=== PATIENT | male | born 1970 | race Native Hawaiian/Other Pacific Islander ===

== ENCOUNTER 2020-07-06 06:14 | Outpatient (CLI) | payer OTHER | END 2020-07-06 20:08 | disposition home or self-care (01) | LOC: LABW 06:14 | PROVIDERS: ATTEND Nurse Practitioner Family | DX: R80.9 Proteinuria, unspecified (principal) | CPT/HCPCS: 84156 ==

== ENCOUNTER 2020-07-22 10:44 | Outpatient (CLI) | payer OTHER | END 2020-07-22 22:06 | disposition home or self-care (01) | LOC: US 10:44 | PROVIDERS: ATTEND Nurse Practitioner Primary Care | DX: R80.8 Other proteinuria (principal) ==

== ENCOUNTER 2020-08-09 10:07 | Outpatient (CLI) | payer OTHER | END 2020-08-09 18:54 | disposition home or self-care (01) | LOC: RAD 10:07 | PROVIDERS: ATTEND Nurse Practitioner Primary Care | DX: M25.511 Pain in right shoulder (principal) ==

== ENCOUNTER 2020-10-01 15:44 | Outpatient (CLI) | payer OTHER ==
[2020-10-01 17:06] LABS: POTASSIUM 4.1 mmol/L (3.6-5.2)
== END 2020-10-01 19:00 | disposition home or self-care (01) ==
LOC: LABW 15:44
PROVIDERS: ATTEND Student in an Organized Health Care Education/Training Program
DX: I10 Essential (primary) hypertension (principal); R80.9 Proteinuria, unspecified; E87.2 Acidosis
CPT/HCPCS: 36415; 80053; 80074; 81000; 82570; 84155; 84165; 86160; 86592; 86701; 86702; 87389

== ENCOUNTER 2020-12-29 16:50 | Outpatient (CLI) | payer OTHER | END 2020-12-29 19:28 | disposition home or self-care (01) | LOC: LABW 16:50 | PROVIDERS: ATTEND Student in an Organized Health Care Education/Training Program | DX: I12.9 Hypertensive chronic kidney disease with stage 1 through stage 4 chronic kidney disease, or unspecified chronic kidney disease (principal); R80.9 Proteinuria, unspecified; E87.2 Acidosis; N18.2 Chronic kidney disease, stage 2 (mild) | CPT/HCPCS: 36415; 80053; 81000; 82570; 84155; 85014; 85018 ==

== ENCOUNTER 2021-06-13 07:43 | Outpatient (CLI) | payer OTHER | END 2021-06-13 20:32 | disposition home or self-care (01) | LOC: RAD 07:43 | PROVIDERS: ATTEND Nurse Practitioner Primary Care | DX: M54.59 Other low back pain (principal) ==

== ENCOUNTER 2021-09-09 14:20 | Outpatient (CLI) | payer OTHER | END 2021-09-09 18:57 | disposition home or self-care (01) | LOC: MRI 14:20 | PROVIDERS: ATTEND Nurse Practitioner Family | DX: M47.896 Other spondylosis, lumbar region (principal) ==

== ENCOUNTER 2021-09-14 09:31 | Outpatient (CLI) | payer OTHER ==
[2021-09-14 09:58] LABS: POTASSIUM 4.1 mmol/L (3.6-5.2)
== END 2021-09-14 18:49 | disposition home or self-care (01) ==
LOC: LABW 09:31
PROVIDERS: ATTEND Nurse Practitioner Family
DX: M10.062 Idiopathic gout, left knee (principal)
CPT/HCPCS: 36415; 80053; 84550

== ENCOUNTER 2021-10-20 16:40 | Outpatient (CLI) | payer OTHER ==
[2021-10-20 17:15] LABS: PLATELET COUNT 286 K/uL (142-355)
[2021-10-20 17:23] LABS: POTASSIUM 3.9 mmol/L (3.6-5.2)
== END 2021-10-20 19:04 | disposition home or self-care (01) ==
LOC: LABW 16:40
PROVIDERS: ATTEND Nurse Practitioner Family
DX: K21.9 Gastro-esophageal reflux disease without esophagitis (principal)
CPT/HCPCS: 36415; 80053; 82150; 82550; 82553; 83690; 84484; 85027; 86677; 93005

== ENCOUNTER 2021-10-30 15:43 | Outpatient (CLI) | payer OTHER | END 2021-10-30 21:52 | disposition home or self-care (01) | LOC: CT 15:43 | PROVIDERS: ATTEND Nurse Practitioner Family | DX: Z09 Encounter for follow-up examination after completed treatment for conditions other than malignant neoplasm (principal); Z87.891 Personal history of nicotine dependence ==

== ENCOUNTER 2021-12-25 14:42 | Emergency (ER) | payer OTHER ==
[~2021-12-25] VITALS: Ht 167.6 cm; Wt 108.0 kg
[2021-12-25 14:56] VITALS: BP 132/80; TEMP 97.9
== END 2021-12-25 15:45 | disposition home or self-care (01) ==
LOC: ED 14:42
PROC: 0HQ0XZZ Repair Scalp Skin, External Approach (ICD-10-PCS; principal; 2021-12-25)
DX: S01.01XA Laceration without foreign body of scalp, initial encounter (principal); W01.198A Fall on same level from slipping, tripping and stumbling with subsequent striking against other object, initial encounter; Y92.89 Other specified places as the place of occurrence of the external cause
CPT/HCPCS: 96372; 99283; J1885